=== PATIENT | male | born 1980 | race Caucasian/White ===

== ENCOUNTER 2018-03-27 10:13 | Emergency (ER) | payer BC, OTHER ==
[2018-03-27 11:01] VITALS: BP 131/93
--- NOTE | 2018-03-27 11:05 | UC ---
General HPI - HPI Summary HPI Summary: Patient works at the [employer] and one of the residents slammed his right hand in the door and it got caught on the hinge, initially signficiant focal swelling on right 4th MCP joint region. Pain in the spot only. No wrist pain or finger pain. Broke his left elbow in the past. Is left hander - History of Current Complaint Chief Complaint: UCUpperExtremity Stated Complaint: RIGHT HAND INJURY - W/C Time Seen by Provider: 03/27/18 11:00 Pain Intensity: 3 - Allergy/Home Medications Allergies/Adverse Reactions: Allergies Allergy/AdvReac Type Severity Reaction Status Date / Time No Known Allergies Allergy Verified 03/27/18 10:49 PMH/Surg Hx/FS Hx/Imm Hx Previously Healthy: Yes - Surgical History Surgical History: Yes Surgery Procedure, Year, and Place: LEFT ELBOW SURGERY, left orbital fx, left ear, left eye skin graft - Family History Known Family History: Positive: Hypertension - Social History Alcohol Use: Weekly Alcohol Amount: 12 pack Substance Use Type: None Smoking Status (MU): Never Smoked Tobacco - Immunization History Most Recent Influenza Vaccination: none 2014 Review of Systems All Other Systems Reviewed And Are Negative: Yes Physical Exam Triage Information Reviewed: Yes Appearance: Well-Appearing Vital Signs: Initial Vital Signs Temp 98.9 F 03/27/18 10:50 Pulse 82 03/27/18 10:50 Resp 20 03/27/18 10:50 BP 131/93 03/27/18 10:50 Pulse Ox 98 03/27/18 10:50 Vital Signs Reviewed: Yes Eye Exam: Normal Musculoskeletal: Positive: Other: - right 4th MCP ecchymosis and edema with pain with ROM, mild erythema over 3rd and 5th MCP - NO pain over this joints. No wrist or digit pain Diagnostics - Radiology right hand Radiology Interpretation Completed By: Radiologist Summary of Radiographic Findings: SEvere swelling over 4th MCP, no fracture Course/Dx - Course Course Of Treatment: This is a 37 yr old with right hand injury while at work. Right hand xray: severe swelling but no fracture. Plan. REcommend rest, ice, elevate. Ibuprofen as needed for pain/swelling. Follow up with Dr. Rice. If pain persists or worsens, follow up with PCP - Diagnoses Provider Diagnosis: Contusion of right hand Discharge - Sign-Out/Discharge Documenting (check all that apply): Patient Departure All imaging exams completed and their final reports reviewed: Yes - Discharge Plan Condition: Fair Disposition: HOME Referrals: No Primary Care Phys,NOPCP [Primary Care Provider] - Memo Rice MD [Medical Doctor] - Additional Instructions: REcommend rest, ice, elevate Ibuprofen as needed for pain/swelling Follow up with Dr. Rice - for occupational medicine/workers comp related injuries If pain persists or worsens, return to urgent care - Billing Disposition and Condition Condition: FAIR Disposition: Home
== END 2018-03-27 11:52 | disposition home or self-care (01) ==
LOC: UCCORT 10:13
DX: S60.221A Contusion of right hand, initial encounter (principal); Y04.2XXA Assault by strike against or bumped into by another person, initial encounter; Y92.099 Unspecified place in other non-institutional residence as the place of occurrence of the external cause; Y99.0 Civilian activity done for income or pay
CPT/HCPCS: 99212; G0463